=== PATIENT | male | born 1995 | race Caucasian/White ===

== ENCOUNTER 2018-10-05 10:46 | Emergency (ER) | payer OTHER ==
--- NOTE | 2018-10-05 11:23 | EDPHY ---
General Time Seen by Provider: 10/05/18 10:55 Narrative: CLINICAL IMPRESSION: Acute situational anxiety ASSESSMENT/PLAN: 22-year-old male, [employer] student presents to the emergency department by ambulance after suffering an anxiety episode this morning. Patient has a history of depression and anxiety, takes 40 mg of Prozac prescribed by a psychiatrist in [place] however stopped "cold turkey" 3 days ago because he was not sure was doing anything for him. He reports feeling more anxious, jittery, and mildly nauseous. He reports his anxiety is mostly centered around homework. He denies suicidal and homicidal ideation, no delusions or hallucinations. No reported alcohol or illicit drug use. He has no physical complaints at this time. He recognizes that it was a poor decision to discontinue his SSRI therapy and will plan to call his psychiatrist today. Our clinical case manager met with the patient and provided local resources for counseling in Behavioral Health. Patient is motivated to incorporate counseling into his stress management plan. I do not feel this patient requires formal TLC evaluation, laboratory work, or hospitalization. He is of sound frame of mind to make appropriate medical decisions. Warning signs return to emergency department were outlined in person and discharge papers. DIFFERENTIAL DX: Differential includes but not limited to, acute/chronic psychosis, severe depression, suicidal or homicidal ideations, grave disability, failure to thrive , medication noncompliance, medication side effect, alcohol intoxication and illicit drug use, metabolic disturbance, electrolyte imbalance ED PROCEDURES: See lab and/or imaging results below ED COURSE: 11:20 a.m.: Discussed with Susan from case management who will see the patient and provide resources for counseling and behavioral health CHIEF COMPLAINT: Anxiety HPI: 22-year-old male with past medical history of depression anxiety presents to the emergency department by ambulance after apparently suffering an acute anxiety episode this morning. Patient was with his girlfriend who called EMS. Patient reports feeling tingly and numb around the mouth, hands, and hyperventilating. He stop taking his prescribed Prozac 3 days ago because he was not feeling it was doing anything for him. He has been on this for quite some time. He admits to having stress mostly centered around home work and school work. He denies suicidal or homicidal ideations. He has never been in the hospital for psychiatric reasons and has never required hospitalization for these. He is followed by psychiatrist in [place]. He is currently a student at [employer] planning to transfer to [employer] next semester. His mother struggles with depression and anxiety. He has a supportive girlfriend and family members at home. He has no reports of hallucinations or delusions. He denies regular alcohol use. He smokes marijuana but denies any other illicit drugs. No other ingestions today. He has no physical complaints at the time of my evaluation PAST MEDICAL HISTORY: Depression and anxiety See nurse/triage notes for additional history if applicable Pertinent Past Surgical History: None reported Family History: Mother with anxiety and depression Social History: Nonsmoker, student at [employer], transferring to [employer] next semester REVIEW OF SYSTEMS: All other systems negative Constitutional: No fever, no chills, appetite change. Eyes: No discharge, vision change ENT: No sore throat, congestion, ear pain. Cardiovascular: No chest pain, no palpitations. Respiratory: No cough, no shortness of breath. Gastrointestinal: No abdominal pain, no vomiting, diarrhea. Skin: No rashes, color change. Neurological: No headache, dizziness, weakness. PHYSICAL EXAM: General Appearance: Alert, oriented, appropriate, cooperative, NAD, well hydrated, non-toxic appearing, VSS, no hypoxia. HEENT: Oropharynx clear is no erythema or exudates, no tonsillar hypertrophy or asymmetry. Dentition without abnormality.] Eyes: PERRLA, no acute vision change, nystagmus, swelling, discharge, pain or photosensitivity. Conjunctiva pink, no pallor or injection Respiratory: There are no retractions, lungs are clear to auscultation. Cardiac: Regular rate and rhythm, no murmurs or gallops. Gastrointestinal: [Abdomen is soft, nontender Neurological: Alert and oriented x 3, CN 2-12 grossly intact Psychiatric: Patient is oriented X 3, there is no agitation, clear thought process, denies suicidal and homicidal ideations, no evidence of acute paranoia , calm and cooperative. MEDICAL DECISION MAKING: Patient was seen independently. Secondary supervising physician at time of evaluation was Dr. Serrato . Diagnosis: Acute situational anxiety . New, requires workup Summary: See Assessment and Plan for summary of ED visit Patient Progress: Stable for discharge. - History Smoking Status: Never smoked - Objective Vital Signs: Initial Vital Signs Temperature (C) 36.6 C 10/05/18 10:51 Heart Rate 68 10/05/18 10:51 Respiratory Rate 16 10/05/18 10:51 Blood Pressure 120/78 10/05/18 10:51 O2 Sat (%) 100 10/05/18 10:51 O2 Delivery Mode Room Air Allergies/Adverse Reactions: No Known Drug Allergies Allergy (Verified 10/05/18 10:54) Home Medications: Medication Instructions Recorded Prozac 10 MG (*) 10/05/18 Departure - Departure Disposition: Home, Routine, Self-Care Clinical Impression: Anxiety in acute stress reaction Condition: Good Instructions: Anxiety (ED) Additional Instructions: DISCHARGE INSTRUCTIONS FROM YOUR DOCTOR Thank you for visiting our emergency department today. You were treated by a physician contract administrative assistant today and your case was reviewed with our ED Attending physician. Please keep in mind that discharge from the emergency department does not mean that there is nothing wrong - it simply means that we have not identified an emergency condition that requires further evaluation or treatment in the hospital. You should always plan to follow up with primary care for re- evaluation of your condition in the next 2-3 days. If you have been referred to a specialist, please call as soon as possible (today or tomorrow) to schedule your follow up appointment at the appropriate time. OUR BABY FORMULA WORKER PROVIDED YOU WITH LOCAL RESOURCES [facility]. PLEASE RESTART YOUR PROZAC. PLEASE CONTACT YOUR PSYCHIATRIST TODAY, MAKE THEM AWARE OF WHAT HAPPENED AND ASK FOR A FOLLOW-UP APPOINTMENT. PLEASE RETURN TO THE EMERGENCY DEPARTMENT IMMEDIATELY FOR WORSENING OR SEVERE DEPRESSION OR ANXIETY, THOUGHTS OF SUICIDE OR HOMICIDE, INABILITY TO COPE WITH STRESS, FEELING UNSAFE, OR ANY OTHER CONCERNS. People present with illnesses and injuries in different ways, and it is always possible that we have missed something. You may always return for re-evaluation if symptoms worsen or if they are not improving or if you develop new/different symptoms. Again, thank you for choosing our emergency department. We hope that you feel better. Referrals: Patient,NotPresent [Unknown] - As per Instructions [facility] [Clinic] - 1-2 days without fail
[2018-10-05 11:38] VITALS: BP 128/78
== END 2018-10-05 11:48 | disposition home or self-care (01) ==
DX: F41.9 Anxiety disorder, unspecified (principal); Z79.899 Other long term (current) drug therapy